=== PATIENT | male | born 2000 | race Caucasian/White ===

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

== ENCOUNTER 2022-05-11 22:53 | Emergency (ER) | payer MEDICAID, OTHER ==
[~2022-05-11 22:53] MED LIST changes: +NAPR-54 PO; -TYLENOL CH160 MG/51 PO
--- NOTE | 2022-05-11 23:45 | NUR ---
CALLED TO TRIAGE, MELANIA DAVE
--- NOTE | 2022-05-12 | NUR ---
CALLED TO TRIAGE, NO ANSWER
--- NOTE | 2022-05-12 00:15 | NUR ---
CALLED TO TRIAGE, NO ANSWER. PT LWBS
== END 2022-05-11 23:45 | disposition left against medical advice (07) ==
LOC: MED 22:53
DX: Z53.21 Procedure and treatment not carried out due to patient leaving prior to being seen by health care provider (principal)

== ENCOUNTER 2023-07-08 19:41 | Emergency (ER) | payer MEDICAID ==
[~2023-07-08] VITALS: Ht 182.9 cm; Wt 80.3 kg
[2023-07-08 20:08] VITALS: BP 117/66; PULSE 88; RESP 18; TEMP 98; O2SAT 98
[2023-07-08] MEDS ORDERED: PRED20TA5 PO (21:03)
[2023-07-08 21:15] VITALS: BP 117/66; PULSE 88; RESP 18; TEMP 98; O2SAT 98
== END 2023-07-08 21:16 | disposition home or self-care (01) ==
LOC: MED 19:41
DX: H10.9 Unspecified conjunctivitis (principal); J06.9 Acute upper respiratory infection, unspecified; Z79.899 Other long term (current) drug therapy
CPT/HCPCS: 99283